=== PATIENT | female | born 1950 | race Caucasian/White ===

== ENCOUNTER 2020-03-30 06:51 | Inpatient (IN) | payer MEDICARE ==
[~2020-03-30] VITALS: Ht 162.6 cm; Wt 65.3 kg
[~2020-03-30 06:51] MED LIST: ACET325 PO; DICLOFENAC SOD100 G1 TP; HYDR1TAB94 PO; KEFLEX500 MG PO; LACT PO
[2020-03-30 10:18] LABS: BASOPHILS ABSOLUTE AUTO 0.01 K/mm3 (0.00-0.23); BASOPHILS PERCENT AUTO 0 % (0-2); EOSINOPHILS ABSOLUTE AUTO 0.01 K/mm3 (0.00-0.68); EOSINOPHILS PERCENT AUTO 0 % (0-6); Hematocrit 23.1 % (33.0-51.0); Hemoglobin 7.4 g/dL (11.5-16.0); IMMATURE GRAN ABSOLUTE AUTO 0.12 K/mm3 (0.00-0.10); IMMATURE GRAN PERCENT AUTO 2 % (0-1); LYMPHOCYTES ABSOLUTE AUTO 1.87 K/mm3 (0.84-5.20); LYMPHOCYTES PERCENT AUTO 28 % (21-46); MONOCYTES ABSOLUTE AUTO 0.56 K/mm3 (0.16-1.47); MONOCYTES PERCENT AUTO 8 % (4-13); Mean Corpuscular HGB 33.8 pg (26.0-34.0); Mean Corpuscular Volume 106 fL (80-100); Mean Platelet Volume 11.4 fL (9.1-12.4); NEUTROPHILS ABSOLUTE AUTO 4.11 K/mm3 (1.96-9.15); NEUTROPHILS PERCENT AUTO 62 % (41-73); NRBC ABSOLUTE 0.63 K/mm3 (0.00-0.02); NRBC Auto 9.4 /100 WBC (0.0-0.2); Platelet Count 195 K/mm3 (150-400); RDW Coefficient Variation 18.5 % (11.7-14.2); RDW Standard Deviation 65.9 fL (35.1-46.3); Red Blood Cell Count 2.19 M/mm3 (3.80-5.20); White Blood Cell Count 6.68 K/mm3 (4.00-11.30)
[2020-03-30 10:38] LABS: Alanine Aminotransfer (ALT/SGP 19 U/L (12-78); Albumin, Blood 3.2 g/dL (3.4-5.0); Albumin/Globulin Ratio 1.1 (0.8-1.8); Alk Phos 68 U/L (50-136); Anion Gap 6 mmol/L (6-16); Aspartate Aminotrans (AST/SGOT 18 U/L (12-37); Bilirubin, Total 0.7 mg/dL (0.1-1.0); Blood Urea Nitrogen 23 mg/dL (8-24); Bun/Creatinine Ratio 37.2 (12.0-20.0); CO2, Blood 25 mmol/L (21-32); Calcium, Blood 8.6 mg/dL (8.5-10.1); Chloride, Blood 112 mmol/L (98-108); Creatinine, Blood 0.62 mg/dL (0.40-1.00); Globulin, Blood 2.8 g/dL (2.2-4.0); Glomerular Filtration Rate >60 (60-); Glucose, Blood 111 mg/dL (70-99); Sodium, Blood 143 mmol/L (136-145); Troponin I <0.015 ng/mL (0.000-0.040)
[2020-03-30 11:27] LABS: International Normalized Ratio 1.06; Prothrombin Time Results 11.3 Sec (9.7-11.5)
[2020-03-30] MEDS ORDERED: Monodox100 MG PO (12:24)
[2020-03-30] MEDS ORDERED: Prednisone10 MG (12:25)
[2020-03-30] MEDS ORDERED: SPIRIVA RESPIMAT4 G3 INH (12:25)
[2020-03-30] MEDS ORDERED: Methotrexate2.5 MG PO (12:26)
[2020-03-30] MEDS ORDERED: MYRBETRIQ50 MG PO (12:26)
[2020-03-30] MEDS ORDERED: XARELTO20 M1 PO (12:27)
[2020-03-30] MEDS ORDERED: TELMISARTAN40 MG PO (12:27)
[2020-03-30] MEDS ORDERED: FOSAMAX70 MG PO (12:27)
[2020-03-30] MEDS ORDERED: Simvastatin20 MG PO (12:27)
[2020-03-30] MEDS ORDERED: FOLI1 PO (12:28)
[2020-03-30] MEDS ORDERED: FEROSUL325 M1 PO (12:43)
[2020-03-30] MEDS ORDERED: ALBU90OI INH (12:47)
--- NOTE | 2020-03-30 17:40 | NUR ---
SHIFT SUMMARY NEW ADMISSION THIS AFTERNOON FOR COPD EXAC AND POSITIVE GUIAC/LOW HGB. PATIENT CURRENTLY RECIEVING A UNIT OF PRBCS. SHE DENIES SOB OR COUGH AT THIS TIME AND REPORTS FEELING BETTER SINCE ADMISSION. SHE IS A&O AND IND IN ROOM. NEED TO OBTAIN LABS AFTER BLOOD IS COMPLETE.
[2020-03-30 19:57] LABS: Hematocrit 25.6 % (33.0-51.0); Hemoglobin 8.4 g/dL (11.5-16.0)
[2020-03-30 19:58] LABS: IMMATURE RETIC FRACTION 45.5 % (2.3-16.0); RETIC HGB EQUIVALENT 37.7 pg (28.20-36.60); RETICULOCYTE ABSOLUTE 0.0585 M/mm3 (0.0200-0.1100); RETICULOCYTE COUNT PERCENT 2.24 % (0.50-2.50)
--- NOTE | 2020-03-31 00:44 | NUR ---
RECEIVED REPORT FROM CYRUS VELASQUEZ. ASSUMED CARE OF PT.
--- NOTE | 2020-03-31 01:54 | NUR ---
PT RESTING COMFORTABLY. CALL LT IN REACH.
[2020-03-31 02:26] LABS: Hemoglobin 8.6 g/dL (11.5-16.0); Mean Corpuscular HGB 32.7 pg (26.0-34.0); Mean Corpuscular HGB Conc 33.1 g/dL (31.5-36.5); Mean Platelet Volume 9.9 fL (9.1-12.4); NRBC ABSOLUTE 0.73 K/mm3 (0.00-0.02); NRBC Auto 12.5 /100 WBC (0.0-0.2); Platelet Count 158 K/mm3 (150-400); RDW Coefficient Variation 19.5 % (11.7-14.2); RDW Standard Deviation 67.3 fL (35.1-46.3); Red Blood Cell Count 2.63 M/mm3 (3.80-5.20); White Blood Cell Count 5.85 K/mm3 (4.00-11.30)
[2020-03-31 02:28] LABS: Mean Corpuscular Volume 99 fL (80-100)
[2020-03-31 02:43] LABS: Anion Gap 7 mmol/L (6-16); Blood Urea Nitrogen 15 mg/dL (8-24); Bun/Creatinine Ratio 25.5 (12.0-20.0); CO2, Blood 21 mmol/L (21-32); Calcium, Blood 8.5 mg/dL (8.5-10.1); Chloride, Blood 115 mmol/L (98-108); Creatinine, Blood 0.59 mg/dL (0.40-1.00); Glomerular Filtration Rate >60 (60-); Glucose, Blood 137 mg/dL (70-99); Sodium, Blood 143 mmol/L (136-145)
--- NOTE | 2020-03-31 03:52 | NUR ---
SHIFT SUMMARY: ER ADMIT. PT RESTED WELL T/O SHIFT. STATES BREATHING IS BETTER AFTER NEB TREATMENT IN THE ER. ON RA. TELE SR IN 90'S. HGB 8.6, IMPROVED AFTER RECEIVING UNIT OF PRBC'S. NO ACUTE CHANGES. WILL CONTINUE TO MONITOR AND PROVIDE CARE UNTIL SHIFT CHANGE.
--- NOTE | 2020-03-31 04:20 | NUR ---
PT STATES SHE GOT UP AND WENT TO THE BR, STATES HER BREATHING WAS OKAY.
--- NOTE | 2020-03-31 16:42 | NUR ---
SHIFT SUMMARY PT AXOX4 PLEASANT AND COOPERATIVE WITH CARE. UP AD RL IN ROOM WITH STEADY GAIT. PT DENIES PAIN, SOB AND NV. NO ACUTE CHANGES THIS SHIFT. PT BM THIS SHIFT WAS LOOSE AND DARK GREEN. BED IN LOW POSITION, CALL LIGHT WITHIN REACH.
--- NOTE | 2020-04-01 05:40 | NUR ---
SHIFT SUMMARY: VSS. AFEB. AAOX4. 02 97% ON RA. LSCTA W/DIM BASES. PT REPORTS SOB W/EXERTION, RESOLVES QUICKLY W/REST. RECEIVED CALL FROM [facility] THAT PT PULSE SINUS TACHY IN THE 120'S, PT WAS UP AMB AT THE TIME. PULSE RETURNED TO THE 110'S RANGE W/REST. PT HAS REMAINED TACHYCARDIC TONIGHT W/ RECORDED PULSES 104 AND 113. PT DENIES SOB, LOONEY, CHEST PAIN OR HEART FLUTTERING. NO RECORDED BM TONIGHT. NO N/V. DENIES PAIN. PT SCHEDULED TO START DRINKING GOLYTELY BOWEL PREP AT 0600. NO ACUTE CONCERNS AT THIS TIME.
[2020-04-01 05:44] LABS: Hematocrit 24.4 % (33.0-51.0); Hemoglobin 8.1 g/dL (11.5-16.0); Mean Corpuscular HGB 33.5 pg (26.0-34.0); Mean Corpuscular HGB Conc 33.2 g/dL (31.5-36.5); Mean Corpuscular Volume 101 fL (80-100); Mean Platelet Volume 10.2 fL (9.1-12.4); NRBC ABSOLUTE 0.99 K/mm3 (0.00-0.02); Platelet Count 168 K/mm3 (150-400); RDW Coefficient Variation 20.3 % (11.7-14.2); RDW Standard Deviation 69.5 fL (35.1-46.3); Red Blood Cell Count 2.42 M/mm3 (3.80-5.20); White Blood Cell Count 10.96 K/mm3 (4.00-11.30)
--- NOTE | 2020-04-01 13:13 | NUR ---
04/01/20 1313 John Zamora PATIENT DETERMINED TO BE ASA APPROPRIATE FOR PROPOFOL SEDATION PRIOR TO START OF PROCEDURE BY DR. Sade Blunt Placed3-LEAD EKG REVIEWED WITH PHYSICIAN PRIOR TO START OF PROCEDURE.Patient to ENDO 1History, Chart, Medications and Allergies reviewed before start of procedure.Glasses RemovedMONITOR INTACT WITH CONTINUOUS PULSE OXIMETRY AND INTERMITTENT BP. O2 VIA N/C INTACT THROUGHOUT SEDATION/PROCEDURE.
--- NOTE | 2020-04-01 16:59 | NUR ---
SHIFT SUMMARY PT IS AOX4. PT DENIES PAIN, N/V. PT DOES HAVE A COUGH WITH SCANT PRODUCTIVITY. PT IS INDEPENDENT IN ROOM. PT HAD AN EGD AND COLONOSCOPY PROCEDURE TODAY AROUND 1300. PT WAS SEEN BY DR. SAL AND RESULTS WERE DISCUSSED WITH PT. PT HAS BEEN IN BED THIS FLORA AND AMBULATES TO BATHROOM. PT IS IN BED WITH CALL LIGHT IN REACH. WILL CONTINUE TO MONITOR AND REVIEW FOR PLAN UPDATES.
--- NOTE | 2020-04-02 04:30 | NUR ---
SHIFT SUMMARY NO ACUTE CHANGES THIS EVENING. PT REMAINED ON RA. O2 SATS IN THE MID 90'S. PT DOES HAVE SOME MINIMAL SOB W/ EXERTION BUT PT REPORTS THIS IS HER BASELINE. LUNG SOUNDS COARSE THROUGHOUT. PT SLEPT WELL THIS EVENING. NO COMPLAINTS OF PAIN. TELEMETRY READING SINUS TACH IN THE LOW 100'S. NO REPORTS OF STOOL THIS EVENING. DENIES ANY ABD DISCOMFORT OR NAUSEA. VITAL SIGNS STABLE. PT HAD UNEVENTFUL NIGHT.
[2020-04-02 05:28] LABS: Hematocrit 23.6 % (33.0-51.0); Hemoglobin 7.6 g/dL (11.5-16.0); Mean Corpuscular HGB 32.8 pg (26.0-34.0); Mean Corpuscular HGB Conc 32.2 g/dL (31.5-36.5); Mean Corpuscular Volume 102 fL (80-100); Mean Platelet Volume 11.6 fL (9.1-12.4); NRBC ABSOLUTE 0.39 K/mm3 (0.00-0.02); NRBC Auto 7.1 /100 WBC (0.0-0.2); Platelet Count 171 K/mm3 (150-400); RDW Coefficient Variation 20.5 % (11.7-14.2); RDW Standard Deviation 67.5 fL (35.1-46.3); Red Blood Cell Count 2.32 M/mm3 (3.80-5.20); White Blood Cell Count 5.53 K/mm3 (4.00-11.30)
[2020-04-02] MEDS ORDERED: PRED20 PO (13:09)
[2020-04-02] MEDS ORDERED: PANT20 PO (13:10)
--- NOTE | 2020-04-02 14:40 | NUR ---
DISCHARGE NOTE PT DC INSTRUCTIONS REVIEWED WITH PT. TELE AND POWERGLIDE REMOVED. PT VERBALIZES AN UNDERSTANDING OF DC INSTRUCTIONS. PT CHANGED INTO HER OWN CLOTHING PRIOR TO DC. BELONGINGS WITH PT. PT WALKED OFF UNIT TO ER ENTRANCE AND LEFT WITH DAUGHTER.
== END 2020-04-02 14:31 | disposition home or self-care (01) | DRG 191 ==
LOC: ER 06:51 → MEDS 11:12 → ENPENDDIS 04-02 14:11 → MEDS 04-02 14:31
PROVIDERS: Emergency Medicine; Internal Medicine; Internal Medicine Gastroenterology; Nurse Practitioner Acute Care; ADMIT Hospitalist
PROC: 0DBE8ZX Excision of Large Intestine, Via Natural or Artificial Opening Endoscopic, Diagnostic (ICD-10-PCS; 2020-04-01)
PROC: 0DB58ZX Excision of Esophagus, Via Natural or Artificial Opening Endoscopic, Diagnostic (ICD-10-PCS; principal; 2020-04-01 13:00)
PROC: 0DB68ZX Excision of Stomach, Via Natural or Artificial Opening Endoscopic, Diagnostic (ICD-10-PCS; 2020-04-01 13:00)
DX: J44.1 Chronic obstructive pulmonary disease with (acute) exacerbation (principal); K92.2 Gastrointestinal hemorrhage, unspecified; I10 Essential (primary) hypertension; D64.9 Anemia, unspecified; K57.30 Diverticulosis of large intestine without perforation or abscess without bleeding; K64.4 Residual hemorrhoidal skin tags; K64.8 Other hemorrhoids; E78.5 Hyperlipidemia, unspecified; M06.9 Rheumatoid arthritis, unspecified
CPT/HCPCS: 36415; 71046; 71260; 80048; 80053; 82728; 83540; 83550; 83880; 84484; 85014; 85018; 85025; 85027; 85045; 85379; 85610; 85730; 86850; 86900; 86901; 86923; 88305; 88341; 88342; 93005; 93010; 94640; 94760; 96374; 99285-25; A9270; A9270-GY; C1751; C9113; J2704; J2920; J2930; J7030; J7050; J7120; J7512; J8610; P9016; Q2038; Q9967; U0003

== ENCOUNTER 2020-10-11 09:53 | Emergency (ER) | payer MEDICARE ==
[~2020-10-11] VITALS: Ht 170.2 cm; Wt 70.3 kg
[~2020-10-11 09:53] MED LIST changes: +ALBU90OI INH; +FEROSUL325 M1 PO; +FOLI1 PO; +FOSAMAX70 MG PO; +MYRBETRIQ50 MG PO; +Methotrexate2.5 MG PO; +Monodox100 MG PO; +PANT20 PO; +PRED20 PO; +Prednisone10 MG; +SPIRIVA RESPIMAT4 G3 INH; +Simvastatin20 MG PO; +TELMISARTAN40 MG PO; +XARELTO20 M1 PO
[2020-10-11 11:18] LABS: BASOPHILS ABSOLUTE AUTO 0.02 K/mm3 (0.00-0.23); BASOPHILS PERCENT AUTO 0 % (0-2); EOSINOPHILS ABSOLUTE AUTO 0.03 K/mm3 (0.00-0.68); EOSINOPHILS PERCENT AUTO 1 % (0-6); Hematocrit 40.1 % (33.0-51.0); Hemoglobin 13.1 g/dL (11.5-16.0); IMMATURE GRAN ABSOLUTE AUTO 0.02 K/mm3 (0.00-0.10); IMMATURE GRAN PERCENT AUTO 0 % (0-1); LYMPHOCYTES PERCENT AUTO 15 % (21-46); MONOCYTES ABSOLUTE AUTO 0.43 K/mm3 (0.16-1.47); MONOCYTES PERCENT AUTO 7 % (4-13); Mean Corpuscular HGB 31.2 pg (26.0-34.0); Mean Corpuscular HGB Conc 32.7 g/dL (31.5-36.5); Mean Corpuscular Volume 96 fL (80-100); Mean Platelet Volume 10.3 fL (9.1-12.4); NEUTROPHILS ABSOLUTE AUTO 4.54 K/mm3 (1.96-9.15); NEUTROPHILS PERCENT AUTO 77 % (41-73); NRBC ABSOLUTE 0.03 K/mm3 (0.00-0.02); NRBC Auto 0.5 /100 WBC (0.0-0.2); Platelet Count 199 K/mm3 (150-400); RDW Coefficient Variation 16.7 % (11.7-14.2); RDW Standard Deviation 57.8 fL (35.1-46.3); White Blood Cell Count 5.94 K/mm3 (4.00-11.30)
[2020-10-11 11:26] LABS: Source, Urine Clean Catch
[2020-10-11 11:33] LABS: Bilirubin, Urine Neg (Neg); Blood, Urine Neg (Neg); Glucose Qualitative, Urine Neg (Neg); Ketones, Urine 2+ (Neg); Leukocyte Esterase, Urine Neg (Neg); Nitrite, Urine Neg (Neg); Protein, Urine Neg (Neg); Urobilinogen, Urine NORM (Normal)
[2020-10-11 11:39] LABS: Appearance, Urine Clear (Clear); Color, Urine Yellow (P-Yellow)
[2020-10-11 11:42] LABS: Alanine Aminotransfer (ALT/SGP 36 U/L (12-78); Albumin, Blood 3.9 g/dL (3.4-5.0); Albumin/Globulin Ratio 1.1 (0.8-1.8); Alk Phos 100 U/L (50-136); Anion Gap 6 mmol/L (6-16); Aspartate Aminotrans (AST/SGOT 27 U/L (12-37); Bilirubin, Total 1.5 mg/dL (0.1-1.0); Blood Urea Nitrogen 11 mg/dL (8-24); Bun/Creatinine Ratio 15.9 (12.0-20.0); CO2, Blood 24 mmol/L (21-32); Calcium, Blood 9.1 mg/dL (8.5-10.1); Chloride, Blood 113 mmol/L (98-108); Creatinine, Blood 0.69 mg/dL (0.40-1.00); Globulin, Blood 3.4 g/dL (2.2-4.0); Glomerular Filtration Rate >60 (60-); Glucose, Blood 94 mg/dL (70-99); Potassium, Blood 3.7 mmol/L (3.5-5.5); Sodium, Blood 143 mmol/L (136-145); Total Protein, Blood 7.3 g/dL (6.4-8.2)
[2020-10-11] MEDS ORDERED: LIDO700A20 TOP (12:43)
== END 2020-10-11 12:53 | disposition home or self-care (01) ==
LOC: ER 09:53
PROVIDERS: Emergency Medicine
DX: R10.9 Unspecified abdominal pain (principal); J44.9 Chronic obstructive pulmonary disease, unspecified; Z87.891 Personal history of nicotine dependence; Z79.899 Other long term (current) drug therapy
CPT/HCPCS: 36415; 74176; 80053; 81003; 83690; 85025; 96374; 99284-25; J1885

== ENCOUNTER 2020-12-29 10:30 | Day surgery (SDC) | payer MEDICARE ==
[~2020-12-29] VITALS: Ht 162.6 cm; Wt 59.1 kg
[~2020-12-29 10:30] MED LIST changes: +LIDO700A20 TOP
[2020-12-29] MEDS ORDERED: ALEN70 PO (11:17)
[2020-12-29] MEDS ORDERED: FURO20 PO (11:18)
[2020-12-29] MEDS ORDERED: AMLO5 PO (11:18)
[2020-12-29] MEDS ORDERED: ASPI81CH PO (11:18)
[2020-12-29] MEDS ORDERED: POTA10T PO (11:19)
--- NOTE | 2020-12-29 16:27 | NUR ---
MONITORED PATIENT FOR 45 MINUTES. PIV REMOVED FROM THE RIGHT FOREARM. PRESSURE DRESSING APPLIED. REVIEWED ALL DISCHARGE INSTRUCTIONS AND COPIES GIVEN OF SIGNATURE PAGES. FOLLOW UP APPOINTMENT MADE FOR 01/08/2021 @ 1400. PATIENT VERBALIZED UNDERSTANDING. NO PAIN NOTED. MONITOR DISCONTINUED AND PAITENT UP AND DRESSED SELF. PATIENT RETAINED ALL BELONGINGS AND DISHCARGED VIA WHEELCHAIR AT 1630
== END 2020-12-30 00:12 | disposition home or self-care (01) ==
LOC: MHTC 10:30
DX: I27.20 Pulmonary hypertension, unspecified (principal); E78.5 Hyperlipidemia, unspecified; J43.2 Centrilobular emphysema; I11.0 Hypertensive heart disease with heart failure; I50.9 Heart failure, unspecified; Z53.8 Procedure and treatment not carried out for other reasons
CPT/HCPCS: 93451; C1769; C1894; J0153; J7030; J7050

== ENCOUNTER → 2021-04-14 | Outpatient (CLI) | payer MEDICARE ==
[~2021-04-14] MED LIST changes: +ALEN70 PO; +AMLO5 PO; +ASPI81CH PO; +FURO20 PO; +POTA10T PO
== END ==
LOC: LAB 12:16 → LAB SHORT 12:16
DX: N39.0 Urinary tract infection, site not specified (principal); B96.1 Klebsiella pneumoniae [K. pneumoniae] as the cause of diseases classified elsewhere
CPT/HCPCS: 87077; 87086; 87186

== ENCOUNTER 2021-08-13 07:39 | Day surgery (SDC) | payer MEDICARE ==
[~2021-08-13] VITALS: Ht 162.6 cm; Wt 60.8 kg
[2021-08-13] MEDS ORDERED: UPTRAVI200 MCG PO (07:56)
--- NOTE | 2021-08-13 08:03 | NUR ---
08/13/21 0803 EVA CASE TETRACAINE DROP INSTILLED AT 0749 PLEDGETT INSERTED AT 0750
== END 2021-08-13 10:17 | disposition home or self-care (01) ==
LOC: ORSCSDS 07:39
PROVIDERS: Ophthalmology
PROC: 08RK3JZ Replacement of Left Lens with Synthetic Substitute, Percutaneous Approach (ICD-10-PCS; principal; 2021-08-13 09:00)
DX: H25.12 Age-related nuclear cataract, left eye (principal); D64.9 Anemia, unspecified; J44.9 Chronic obstructive pulmonary disease, unspecified; I10 Essential (primary) hypertension; I27.20 Pulmonary hypertension, unspecified; Z99.81 Dependence on supplemental oxygen; Z87.891 Personal history of nicotine dependence; Z79.899 Other long term (current) drug therapy
CPT/HCPCS: J2001; J2250; J3010; J3301; J7040; V2632

== ENCOUNTER 2021-08-20 06:44 | Day surgery (SDC) | payer MEDICARE ==
[~2021-08-20] VITALS: Ht 162.6 cm; Wt 60.3 kg
[~2021-08-20 06:44] MED LIST changes: +UPTRAVI200 MCG PO
--- NOTE | 2021-08-20 06:56 | NUR ---
08/20/21 0656 Gayathri Coats TETRACAINE AND PLEDGET PLACED IN RIGHT EYE BY [facility].G
== END 2021-08-20 08:30 | disposition home or self-care (01) ==
LOC: ORSCSDS 06:44
PROVIDERS: Ophthalmology
PROC: 08RJ3JZ Replacement of Right Lens with Synthetic Substitute, Percutaneous Approach (ICD-10-PCS; principal; 2021-08-20 08:00)
DX: H25.11 Age-related nuclear cataract, right eye (principal); I27.20 Pulmonary hypertension, unspecified; I10 Essential (primary) hypertension; Z99.81 Dependence on supplemental oxygen; R06.02 Shortness of breath; Z87.891 Personal history of nicotine dependence; J44.9 Chronic obstructive pulmonary disease, unspecified; Z86.16 Personal history of COVID-19; Z79.82 Long term (current) use of aspirin; Z79.899 Other long term (current) drug therapy
CPT/HCPCS: J2001; J2250; J3010; J3301; J7040; V2632

== ENCOUNTER → 2024-08-31 | Outpatient (CLI) | payer MEDICARE ==
[~2024-08-31] MED LIST changes: +ADCIRCA20 MG PO; +AMBRISENTAN PO; +ANORO ELLIPTA1 EACH INH; +Aspir 8181 MG PO; +ELIQUIS5 M2 PO; +GABA100; +Hydroxychloroq200 MG PO; +LEFLUNOMIDE20 M2 PO; +LETAIRIS PO; +LEVO750 PO; +OCUFLOX511; +OXYC5; +Remodulin1 MG/1 ML; +SYMBICORT 80-10.2 GM INH; +TADA10TA; +TELM40 PO; +TIOT18; +TRAZ50 PO
[2024-08-31 10:29] LABS: BASOPHILS ABSOLUTE AUTO 0.02 K/mm3 (0.00-0.23); BASOPHILS PERCENT AUTO 0 % (0-2); EOSINOPHILS ABSOLUTE AUTO 0.57 K/mm3 (0.00-0.68); EOSINOPHILS PERCENT AUTO 8 % (0-6); Hematocrit 39.9 % (33.0-51.0); Hemoglobin 12.9 g/dL (11.5-16.0); IMMATURE GRAN ABSOLUTE AUTO 0.02 K/mm3 (0.00-0.10); IMMATURE GRAN PERCENT AUTO 0 % (0-1); LYMPHOCYTES ABSOLUTE AUTO 1.31 K/mm3 (0.84-5.20); LYMPHOCYTES PERCENT AUTO 17 % (21-46); MONOCYTES ABSOLUTE AUTO 0.51 K/mm3 (0.16-1.47); MONOCYTES PERCENT AUTO 7 % (4-13); Mean Corpuscular HGB 29.9 pg (26.0-34.0); Mean Corpuscular HGB Conc 32.3 g/dL (31.5-36.5); Mean Corpuscular Volume 93 fL (80-100); Mean Platelet Volume 9.2 fL (9.1-12.4); NEUTROPHILS ABSOLUTE AUTO 5.16 K/mm3 (1.96-9.15); NEUTROPHILS PERCENT AUTO 68 % (41-73); Platelet Count 212 K/mm3 (150-400); RDW Coefficient Variation 15.6 % (11.7-14.2); RDW Standard Deviation 53.2 fL (35.1-46.3); Red Blood Cell Count 4.31 M/mm3 (3.80-5.20); White Blood Cell Count 7.59 K/mm3 (4.00-11.30)
[2024-08-31 10:50] LABS: Albumin, Blood 3.5 g/dL (3.4-5.0); Bilirubin, Total 0.6 mg/dL (0.1-1.0); Bun/Creatinine Ratio 18.4 (12.0-20.0); Calcium, Blood 9.2 mg/dL (8.5-10.1); Creatinine, Blood 0.76 mg/dL (0.40-1.00); Globulin, Blood 3.6 g/dL (2.2-4.0); Total Protein, Blood 7.1 g/dL (6.4-8.2)
== END ==
LOC: LAB SHORT 10:25 → LAB 10:25
DX: L03.311 Cellulitis of abdominal wall (principal)
CPT/HCPCS: 80053; 85025

== ENCOUNTER 2025-03-28 07:13 | Day surgery (SDC) | payer MEDICARE ==
[~2025-03-28] VITALS: Ht 160 cm; Wt 55.9 kg
[~2025-03-28 07:13] MED LIST changes: +NS 500 ML IV ONE
[2025-03-28] MEDS ORDERED: CeFAZolin Sodium 2,000 MG VIAL ONE (07:24)
[2025-03-28] MEDS ORDERED: NS 500 ML IV ONE (07:38)
[2025-03-28] MEDS ORDERED: ELIQUIS5 M3 PO (07:42)
[2025-03-28] MEDS ORDERED: ATOR10 PO (07:44)
[2025-03-28] MEDS ORDERED: PROAIR DIGIHAL90 MCG IH (07:46)
[2025-03-28] MEDS ORDERED: ANORO ELLIPTA1 EAC1 IH (07:46)
--- NOTE | 2025-03-28 08:03 | NUR ---
03/28/25 0803 Yanelis Null TIME OUT PERFORMED AT BEDSIDE WITH DR KAUR AT 0800 IMMEDIATELY PRIOR TO INJECTION OF 7ML OF SOLUTION CONSISTING OF 9ML 1% LIDOCAINE WITH EPI [id number] AND 1ML 8.4% SODIUM BICARBONATE. PT TOLERATED PROCEDURE WELL.
--- NOTE | 2025-03-28 09:00 | NUR ---
03/28/25 0900 Sarika Ceron RN CHARTING UNDER SARIKA BRIDGES
[2025-03-28 09:17] VITALS: BP 142/83
== END 2025-03-28 09:33 | disposition home or self-care (01) ==
LOC: ORSCSDS 07:13
PROVIDERS: Orthopaedic Surgery
PROC: 01N54ZZ Release Median Nerve, Percutaneous Endoscopic Approach (ICD-10-PCS; principal; 2025-03-28 08:45)
DX: G56.01 Carpal tunnel syndrome, right upper limb (principal); I10 Essential (primary) hypertension; E78.5 Hyperlipidemia, unspecified; J44.9 Chronic obstructive pulmonary disease, unspecified; I27.20 Pulmonary hypertension, unspecified; Z79.899 Other long term (current) drug therapy
CPT/HCPCS: J0690; J2704; J7040